=== PATIENT | female | born 1950 | race Caucasian/White ===

== ENCOUNTER 2017-03-30 12:08 | Inpatient (IN) | payer MEDICARE, MEDICAID ==
[2017-03-30 12:42] LABS: % BASOPHILS 0.8 % (0.0-2.0); % EOSINOPHILS 2.4 % (0.0-5.0); % LYMPHOCYTES 27.1 % (20.0-50.0); % MONOCYTES 5.6 % (2.0-10.0); % NEUTROPHILS 64.1 % (40.0-80.0); HEMOGLOBIN 12.9 gm/dL (11.7-16.1); MEAN CELL VOLUME 81.2 fl (81-100); MEAN CORPUSCULAR HEMOGLOBIN 27.5 pg (27.0-31.0); MEAN CORPUSCULAR HGB CONC 33.8 pg (28.0-36.0); MEAN PLATELET VOLUME 8.1 fl; PLATELET COUNT 222 Th/cmm (150-400); RED BLOOD COUNT 4.68 Mil/cmm (3.80-5.20); RED CELL DISTRIBUTION WIDTH 14.5 % (11.5-20.0)
[2017-03-30 12:58] LABS: INR 0.9 (0.5-1.4); PROTHROMBIN TIME (TEST) 9.3 SECONDS (9.5-11.5)
[2017-03-30 13:00] LABS: ALB/GLOB RATIO 1.5 (1.0-1.8); ANION GAP 7.4 (7.0-16.0); BILIRUBIN,TOTAL 0.5 mg/dL (0.3-1.0); BUN/CREATININE RATIO 24.2; CALCIUM SERUM 9.6 mg/dL (8.6-10.3); CREATININE - SERUM 1.2 mg/dL (0.6-1.2); POTASSIUM SERUM 3.4 mEq/L (3.5-5.1)
[2017-03-30 13:01] LABS: CHOLESTEROL 197 mg/dL (<200); TRIGLYCERIDES 188 mg/dL (<150)
--- NOTE | 2017-03-30 13:03 | Diagnostic Imaging Report ---
CT scan of the brain without intravenous contrast HISTORY: Shortness of breath Total DLP equals 761 CTDI equals 40.1 Axial sections were obtained from the base of the skull to the vertex. There is prominence/enlargement of the ventricular system size. Associated enlargement of cerebral sulci and subarachnoid cisterns. Findings are consistent with changes of generalized cerebral atrophy. No acute parenchymal abnormalities. No acute cerebral hemorrhage. Hypodensity is seen within the supratentorial white matter regions without mass effect. The findings may be associated with chronic small vessel ischemic disease. No extra-axial masses or abnormal fluid collections. IMPRESSION: 1. No acute abnormalities 2. Cerebral atrophy 3. Supratentorial white matter changes that may reflect chronic small vessel ischemic disease
--- NOTE | 2017-03-30 13:05 | ED Physician Chart ---
Chief Complaint/HPI - Patient Information Date Seen:: 03/30/17 Time Seen:: 13:00 Chief Complaint:: RIGHT LEG PAIN History of Present Illness:: THIS IS A 66 YO FEMALE WHO STATES SHE SUDDENLY BECAME WEAK AND SOB JUST PRIOR TO ARRIVAL IN THIS ER. SHE DENIES ANY CHEST PAIN, ABDOMINAL PAIN AND HEAD PAIN. SHE ADMITS TO A HISTORY OF HYPERTENSION, CHF, ARTHRITIS AND OBESITY. SHE DENIES FEVER, COUGH AND SORE THROAT. Allergies:: Allergies Allergy/AdvReac Type Severity Reaction Status Date / Time No Known Allergies Allergy Verified 03/30/17 12:44 Vitals:: Vital Signs - 8 hr 03/30/17 12:44 Temp 98.3 F HR 51 RR 17 BP 118/64 O2 Sat % 98 Historian:: Patient Review:: Nurse's Note Reviewed Review of Systems - Review of Systems General/Constitutional: No fever, No chills, No weight loss, Weakness, No diaphoresis, No edema, No loss of appetite Skin: No skin lesions, No rash, No bruising Head: No headache, No light-headedness Eyes: No loss of vision, No pain, No diplopia ENT: No earache, No nasal drainage, No sore throat, No tinnitus Neck: No neck pain, No swelling, No thyromegaly, No stiffness, No mass noted Cardio Vascular: No chest pain, No palpitations, No PND, No orthopnea, No edema Pulmonary: SOB, No cough, No sputum, No wheezing GI: No nausea, No vomiting, No diarrhea, No pain, No melena, No hematochezia, No constipation, No hematemesis G/U: No dysuria, No frequency, No hematuria Musculoskeletal: No bone or joint pain, No back pain, No muscle pain Endocrine: No polyuria, No polydipsia Psychiatric: No prior psych history, No depression, No anxiety, No suicidal ideation Hematopoietic: No bruising, No lymphadenopathy Allergic/Immuno: No urticaria, No angioedema Neurological: No syncope, No focal symptoms, No weakness, No paresthesia, No headache, No seizure, No dizziness, No confusion, No vertigo Past Medical History - Past Medical History Obtainable: Yes Past Medical History: HTN, CHF, Dyslipidemia, Arthritis Social History: Non Smoker, No Alcohol, No Drug Use Surgical History: Cholecystectomy, other (KNEE SURGERY) Family Medical History - Family Member Mother History Unknown: Yes Physical Exam - Physical Examination General/Constitutional: Awake, Well-developed, well-nourished, Alert, No distress, GCS 15, Non-toxic appearing, Ambulatory Other Gen/Cons comments:: OBESE Head: Atraumatic Eyes: Lids, conjuctiva normal, PERRL, EOMI Skin: Nl inspection, No rash, No skin lesions, No ecchymosis, Well hydrated, No lymphadenopathy ENMT: External ears, nose nl, Nasal exam nl, Lips, teeth, gums nl Neck: Nontender, Full ROM w/o pain, No JVD, No nuchal rigidity, No bruit, No mass, No stridor Respiratory: Nl effort/Exclusion, Clear to Auscultation, No Wheeze/Rhonchi/Rales Cardio Vascular: RRR, No murmur, gallop, rubs, NL S1 S2 GI: No tenderness/rebounding/guarding, No organomegaly, No hernia, Normal BS's, Nondistended, No mass/bruits, No McBurney tenderness : No CVA tenderness Extremities: No tenderness or effusion, Full ROM, normal strength in all extremities, Normal digits & nails Other Extremities comments:: BILATERAL 2+ PITTING EDEMA Neuro/Psych: Alert/oriented, DTR's symmetric, Normal sensory exam, Normal motor strength, Judgement/insight normal, Mood normal, Normal gait, No focal deficits Misc: normal gait, Normal back, No paraspinal tenderness Labs/Radiology/EKG Results - Lab Results Results: Laboratory Tests 03/30/17 12:35 WBC 6.0 RBC 4.68 Hgb 12.9 Hct 38.0 MCV 81.2 MCH 27.5 MCHC Differential 33.8 RDW 14.5 Plt Count 222 MPV 8.1 Neutrophils % 64.1 Lymphocytes % 27.1 Monocytes % 5.6 Eosinophils % 2.4 Basophils % 0.8 Abnormal Lab Results 03/30/17 03/30/17 03/30/17 12:35 12:35 12:35 WBC 6.0 RBC 4.68 Hgb 12.9 Hct 38.0 MCV 81.2 MCH 27.5 MCHC Differential 33.8 RDW 14.5 Plt Count 222 MPV 8.1 Neutrophils % 64.1 Lymphocytes % 27.1 Monocytes % 5.6 Eosinophils % 2.4 Basophils % 0.8 PT 9.3 L INR 0.90 PTT (Actin FS) 21.1 L Sodium Potassium Chloride Carbon Dioxide Anion Gap BUN Creatinine Est GFR ( Amer) Est GFR (Non-Af Amer) BUN/Creatinine Ratio Glucose Calcium Total Bilirubin AST ALT Alkaline Phosphatase Troponin I Total Protein Albumin Globulin Albumin/Globulin Ratio Triglycerides 188 H Cholesterol 197 LDL Cholesterol Direct 116 HDL Cholesterol 43 03/30/17 03/30/17 12:35 12:35 WBC RBC Hgb Hct MCV MCH MCHC Differential RDW Plt Count MPV Neutrophils % Lymphocytes % Monocytes % Eosinophils % Basophils % PT INR PTT (Actin FS) Sodium 136 Potassium 3.4 L Chloride 102 Carbon Dioxide 30.0 Anion Gap 7.4 BUN 29 H Creatinine 1.2 Est GFR ( Amer) 58.0 Est GFR (Non-Af Amer) 47.9 BUN/Creatinine Ratio 24.2 Glucose 93 Calcium 9.6 Total Bilirubin 0.5 AST 19 ALT 14 Alkaline Phosphatase 63 Troponin I 0.02 Total Protein 7.1 Albumin 4.2 Globulin 2.9 Albumin/Globulin Ratio 1.5 Triglycerides Cholesterol LDL Cholesterol Direct HDL Cholesterol ED Septic Shock - . Is Septic Shock (SBP<90, OR Lactate>4 mmol\L) present?: No - <6hrs of presentation: Vital Signs: Vital Signs - 8 hr 03/30/17 12:44 Temp 98.3 F HR 51 RR 17 BP 118/64 O2 Sat % 98
--- NOTE | 2017-03-30 13:22 | Diagnostic Imaging Report ---
Exam: Chest single view HISTORY: Shortness of breath. Findings: Upright examination of chest reviewed the study demonstrates no acute pulmonic infiltrates or effusions. Mediastinal structures midline the heart is not enlarged costophrenic angles are clear. Bony thorax is intact. IMPRESSION: 1. Normal examination of chest.
[2017-03-30] MEDS ORDERED: Potassium Chloride Elixir 20 mEq /15 mL UDC PO ONE (13:47)
[2017-03-30] MEDS ORDERED: Potassium Chloride 20 mEq ER Tab PO ONE (13:49)
[2017-03-30] MEDS ORDERED: Potassium Chloride Elixir 20 mEq /15 mL UDC ONE (13:53)
[2017-03-30 18:17] VITALS: BP 128/54
--- NOTE | 2017-03-31 06:34 | History and Physical ---
History of Present Illness - HPI Chief Complaint: Feeling weak and shortness of breath and dizzy. HPI: 66 yrs female with CHF,HTN,Obesity and DJD presented to ER for evaluation of above symptoms. Patient was noted to have symptomatic bradycardia ,patient is now admitted for evaluation and possible need for pacemaker. Vital Signs: Last Vital Signs Temp 97.6 F 03/31/17 04:00 Pulse 62 03/31/17 04:00 Resp 18 03/31/17 04:00 BP 110/55 03/31/17 04:00 Pulse Ox 97 03/31/17 04:00 Past Medical History Cardiovascular: Report: CHF, HTN Pulmonary: Report: No Pertinent Hx IT QUALITY ASSURANCE ANALYST: Report: No Pertinent Hx GI: Report: GERD, Gastritis Psych: Report: No Pertinent Hx Musculoskeletal: Report: Other (DJD) Rheumatologic: Report: No pertinent Hx Infectious Disease: Report: No Pertinent Hx Renal/: Report: No Pertinent Hx Endocrine: Report: No Pertinent Hx Dermatology: Report: No Pertinent Hx - Past Surgical History Past Surgical History: Cholecystectomy, Total Knee Replacement Family Medical History - Family Member Mother History Unknown: Yes Ethnicity: Hx Family Cancer: No Hx Family Coronary Artery Disease: No Hx Family Congestive Heart Failure: No Hx Family Hypertension: Yes Hx Family Diabetes: Yes Social History Smoke: No Alcohol: None Drugs: None Lives: With Family Domestic Violence: Negative - Medications Home Medications: Home Medication Medication Instructions Recorded Type Aspirin [Aspirin Chewable] 81 mg PO DAILY 03/30/17 History Benazepril [Lotensin] 20 mg PO DAILY 03/30/17 History Bisacodyl [Topcare Laxative] 5 mg PO HS 03/30/17 History Ibuprofen 800 mg PO Q8H 03/30/17 History Loratadine [Claritin] 10 mg PO DAILY 03/30/17 History Metolazone 5 mg PO DAILY 03/30/17 History Pantoprazole [Protonix] 40 mg PO DAILY 03/30/17 History Potassium Chloride 16 meq PO DAILY 03/30/17 History Temazepam [Restoril] 30 mg PO HS 03/30/17 History - Allergies Allergies/Adverse Reactions: Allergies Allergy/AdvReac Type Severity Reaction Status Date / Time No Known Allergies Allergy Verified 03/30/17 12:44 Review of Systems - Review of Systems Constitutional: Report: No Significant Eyes: Report: No Significant ENT: Report: No Significant Respiratory: Report: SOB with Excertion Cardiovascular: Report: Chest Pain, Light Headedness Gastrointestinal: Report: Nausea Genitourinary: Report: No Significant Musculoskeletal: Report: No Significant Skin: Report: No Significant Neurological: Report: No Significant Physical Exam - Physical Exam HEENT: Report: Ears Nose Throat within normal limits Neck: Report: Within normal limits Cardiovascular Systems: Report: Systolic Murmur, Bradycardia Respiratory: Report: Breath Sounds are within normal limits Abdomen: Report: Non-tender to palpation Back: Report: Inspection of back is within normal limits. Extremities: Report: Non-tender to palpation., Patient had full range of motion , Pedal edema was noted on inspection Skin: Report: Color of skin is within normal limits Neuro/Psych: Report: Mood affect is within normal limits - Lab Results All Lab Results last 24 hours: Laboratory Last Values WBC 6.0 Th/cmm (4.8-10.8) 03/30/17 12:35 RBC 4.68 Mil/cmm (3.80-5.20) 03/30/17 12:35 Hgb 12.9 gm/dL (11.7-16.1) 03/30/17 12:35 Hct 38.0 % (35.0-45.0) 03/30/17 12:35 MCV 81.2 fl (81-100) 03/30/17 12:35 MCH 27.5 pg (27.0-31.0) 03/30/17 12:35 MCHC Differential 33.8 pg (28.0-36.0) 03/30/17 12:35 RDW 14.5 % (11.5-20.0) 03/30/17 12:35 Plt Count 222 Th/cmm (150-400) 03/30/17 12:35 MPV 8.1 fl 03/30/17 12:35 Neutrophils % 64.1 % (40.0-80.0) 03/30/17 12:35 Lymphocytes % 27.1 % (20.0-50.0) 03/30/17 12:35 Monocytes % 5.6 % (2.0-10.0) 03/30/17 12:35 Eosinophils % 2.4 % (0.0-5.0) 03/30/17 12:35 Basophils % 0.8 % (0.0-2.0) 03/30/17 12:35 PT 9.3 SECONDS (9.5-11.5) L 03/30/17 12:35 INR 0.90 (0.5-1.4) 03/30/17 12:35 PTT (Actin FS) 21.1 SECONDS (26.0-38.0) L 03/30/17 12:35 Sodium 136 mEq/L (136-145) 03/30/17 12:35 Potassium 3.4 mEq/L (3.5-5.1) L 03/30/17 12:35 Chloride 102 mEq/L (98-107) 03/30/17 12:35 Carbon Dioxide 30.0 mEq/L (21.0-31.0) 03/30/17 12:35 Anion Gap 7.4 (7.0-16.0) 03/30/17 12:35 BUN 29 mg/dL (7-25) H 03/30/17 12:35 Creatinine 1.2 mg/dL (0.6-1.2) 03/30/17 12:35 Est GFR ( Amer) 58.0 ml/min (>90) 03/30/17 12:35 Est GFR (Non-Af Amer) 47.9 ml/min 03/30/17 12:35 BUN/Creatinine Ratio 24.2 03/30/17 12:35 Glucose 93 mg/dL (70-105) 03/30/17 12:35 Calcium 9.6 mg/dL (8.6-10.3) 03/30/17 12:35 Total Bilirubin 0.5 mg/dL (0.3-1.0) 03/30/17 12:35 AST 19 U/L (13-39) 03/30/17 12:35 ALT 14 U/L (7-52) 03/30/17 12:35 Alkaline Phosphatase 63 U/L (34-104) 03/30/17 12:35 Troponin I 0.02 ng/mL (0.01-0.05) 03/30/17 20:49 Total Protein 7.1 gm/dL (6.0-8.3) 03/30/17 12:35 Albumin 4.2 gm/dL (3.7-5.3) 03/30/17 12:35 Globulin 2.9 gm/dL 03/30/17 12:35 Albumin/Globulin Ratio 1.5 (1.0-1.8) 03/30/17 12:35 Triglycerides 188 mg/dL (<150) H 03/30/17 12:35 Cholesterol 197 mg/dL (<200) 03/30/17 12:35 LDL Cholesterol Direct 116 mg/dL (75-193) 03/30/17 12:35 HDL Cholesterol 43 mg/dL (23-92) 03/30/17 12:35 RPR NONREACTIVE (NONREACTIVE) 03/30/17 12:35 Laboratory Results - last 24 hr 03/30/17 20:49 Troponin I 0.02 - Assessment Assessment: Current Active Problems Problem Status Onset LEFT ARM/LEG PAIN WITH WEAKNESS Acute Acute weakness and Dyspnea. Symptomatic bradycardia Bilateral leg edema Hypertension GERD DJD Obesity CHF by history - Plan Plan: Stat Bilateral LE doppler. D dimer Cardio consult Cardiac enzymes Cardiac monitoring General nursing care] Med reconcilation Follow lab Follow further investigation and give recommendations care plan reviewed with Staff.
[2017-03-31 06:47] LABS: % BASOPHILS 1.1 % (0.0-2.0); % EOSINOPHILS 3.4 % (0.0-5.0); % LYMPHOCYTES 29.1 % (20.0-50.0); % MONOCYTES 5.6 % (2.0-10.0); % NEUTROPHILS 60.8 % (40.0-80.0); HEMOGLOBIN 11.1 gm/dL (11.7-16.1); MEAN CELL VOLUME 82.8 fl (81-100); MEAN CORPUSCULAR HEMOGLOBIN 27.3 pg (27.0-31.0); MEAN PLATELET VOLUME 8.2 fl; NEUTROPHILE ABSOLUTE 3.7 Th/cmm (1.8-8.0); PLATELET COUNT 199 Th/cmm (150-400); RED BLOOD COUNT 4.07 Mil/cmm (3.80-5.20); RED CELL DISTRIBUTION WIDTH 14.5 % (11.5-20.0)
[2017-03-31 06:50] LABS: HEMATOCRIT 33.7 % (35.0-45.0)
[2017-03-31 07:12] LABS: ALB/GLOB RATIO 1.6 (1.0-1.8); ALKALINE PHOSPHATASE 52 U/L (34-104); ANION GAP 5.9 (7.0-16.0); BILIRUBIN,TOTAL 0.5 mg/dL (0.3-1.0); BUN - UREA NITROGEN 25 mg/dL (7-25); BUN/CREATININE RATIO 22.7; CALCIUM SERUM 9.1 mg/dL (8.6-10.3); CARBON DIOXIDE 30.3 mEq/L (21.0-31.0); CHLORIDE 103 mEq/L (98-107); CHOLESTEROL 168 mg/dL (<200); CREATININE - SERUM 1.1 mg/dL (0.6-1.2); GLUCOSE 109 mg/dL (70-105); MAGNESIUM 1.5 mg/dL (1.9-2.7); POTASSIUM SERUM 3.2 mEq/L (3.5-5.1); SGOT 17 U/L (13-39); SGPT/ALT 13 U/L (7-52); SODIUM SERUM 136 mEq/L (136-145); TRIGLYCERIDES 142 mg/dL (<150)
[2017-03-31] MEDS: Aspirin 81mg Chewable Tab PO SCH (08:51)
[2017-03-31] MEDS: Pantoprazole 40 mg EC Tab PO SCH (08:52)
[2017-03-31] MEDS: Potassium Chloride Elixir 20 mEq /15 mL UDC PO SCH (08:52)
[2017-03-31] MEDS ORDERED: VTE Chemical Prophylaxis Screen/Admission MC PRN (11:44)
[2017-03-31] MEDS: Acetaminophen 500 MG TAB PO PRN ×2 (12:09→18:24)
--- NOTE | 2017-03-31 13:19 | Diagnostic Imaging Report ---
Right lower extremity Doppler venous ultrasound exam HISTORY: Pain/swelling Sonographic sector images were obtained through the deep venous systems of the right leg. Associated Doppler data was obtained. The exam demonstrates patency of the common femoral, superficial femoral, popliteal, and posterior tibial veins. Specifically, no thrombus is seen. There are normal compressibility and augmentation responses. IMPRESSION: Negative exam for deep vein thrombophlebitis.
[2017-04-01 06:17] LABS: ANION GAP 4.8 (7.0-16.0); BUN - UREA NITROGEN 23 mg/dL (7-25); BUN/CREATININE RATIO 20.9; CALCIUM SERUM 9.4 mg/dL (8.6-10.3); CARBON DIOXIDE 32.5 mEq/L (21.0-31.0); CHLORIDE 103 mEq/L (98-107); CREATININE - SERUM 1.1 mg/dL (0.6-1.2); GLUCOSE 100 mg/dL (70-105); POTASSIUM SERUM 3.3 mEq/L (3.5-5.1); SODIUM SERUM 137 mEq/L (136-145)
[2017-04-01] MEDS: Pantoprazole 40 mg EC Tab PO SCH (08:56)
[2017-04-01] MEDS: Acetaminophen 500 MG TAB PO PRN (08:57)
[2017-04-01] MEDS: Potassium Chloride Elixir 20 mEq /15 mL UDC PO SCH (08:58)
[2017-04-01] MEDS: Aspirin 81mg Chewable Tab PO SCH (09:01)
--- NOTE | 2017-04-01 12:11 | Discharge Summary ---
General Discharge Summary - Discharge Summary Date of Admission: 03/30/17 Admitting Diagnosis: weakness and dizziness Patient Problems: All Active Problems LEFT ARM/LEG PAIN WITH WEAKNESS (Acute) Discharge Date: 04/01/17 Discharge Diagnosis: sinus bradycardia. Hypertension. Obesity. Diastolic dysfunction. CHF Laboratory Findings: Laboratory Tests 03/30/17 03/31/17 03/31/17 20:49 06:30 06:30 WBC 6.0 RBC 4.07 Hgb 11.1 L Hct 33.7 L D MCV 82.8 MCH 27.3 MCHC Differential 33.0 RDW 14.5 Plt Count 199 MPV 8.2 Neutrophils % 60.8 Lymphocytes % 29.1 Monocytes % 5.6 Eosinophils % 3.4 Basophils % 1.1 D-Dimer Sodium Potassium Chloride Carbon Dioxide Anion Gap BUN Creatinine Est GFR ( Amer) Est GFR (Non-Af Amer) BUN/Creatinine Ratio Glucose Calcium Magnesium Total Bilirubin AST ALT Alkaline Phosphatase Troponin I 0.02 0.01 B-Natriuretic Peptide Total Protein Albumin Globulin Albumin/Globulin Ratio Triglycerides Cholesterol LDL Cholesterol Direct HDL Cholesterol 03/31/17 03/31/17 04/01/17 06:30 14:15 05:20 WBC RBC Hgb Hct MCV MCH MCHC Differential RDW Plt Count MPV Neutrophils % Lymphocytes % Monocytes % Eosinophils % Basophils % D-Dimer 219 Sodium 136 137 Potassium 3.2 L 3.3 L Chloride 103 103 Carbon Dioxide 30.3 32.5 H Anion Gap 5.9 L 4.8 L BUN 25 23 Creatinine 1.1 1.1 Est GFR ( Amer) > 60.0 > 60.0 Est GFR (Non-Af Amer) 53.0 53.0 BUN/Creatinine Ratio 22.7 20.9 Glucose 109 H 100 Calcium 9.1 9.4 Magnesium 1.5 L Total Bilirubin 0.5 AST 17 ALT 13 Alkaline Phosphatase 52 Troponin I 0.01 B-Natriuretic Peptide Total Protein 5.9 L Albumin 3.6 L Globulin 2.3 Albumin/Globulin Ratio 1.6 Triglycerides 142 Cholesterol 168 LDL Cholesterol Direct 104 HDL Cholesterol 34 04/01/17 05:20 WBC RBC Hgb Hct MCV MCH MCHC Differential RDW Plt Count MPV Neutrophils % Lymphocytes % Monocytes % Eosinophils % Basophils % D-Dimer Sodium Potassium Chloride Carbon Dioxide Anion Gap BUN Creatinine Est GFR ( Amer) Est GFR (Non-Af Amer) BUN/Creatinine Ratio Glucose Calcium Magnesium Total Bilirubin AST ALT Alkaline Phosphatase Troponin I B-Natriuretic Peptide 8.7 Total Protein Albumin Globulin Albumin/Globulin Ratio Triglycerides Cholesterol LDL Cholesterol Direct HDL Cholesterol Hospital Course: 66-year-old female presented to the emergency room for evaluation of weakness dizziness. Patient was seen by emergency room Maisha and noted to bradycardia. Patient was admitted to hospital for evaluation of her symptoms. Patient was seen by produce associate as well as myself. Patient's also had lower extremity venous Doppler studies which was negative for deep venous thrombosis. 2-D echocardiogram was performed which did remarkable for LVH and diastolic dysfunction. Patient remained asymptomatic with heart rate of follow-up 50s and 55 strength while she was awake. Patient's thyroid functions were also normal. I did discuss with produce associate about discharge planning is considering patient was asymptomatic and no plan to have any further intervention. Patient is discharged home in stable conditions today with continuation of same medication as patient was receiving at home. Patient was advised to see patient's primary care doctor and produce associate in 1-2 weeks. If recurrent symptoms patient is advised to go to the emergency room. Treatment: Cardiac monitoring, general nursing care, witnessed Doppler studies of the lower extremity, 2-D echocardiogram Condition at Discharge: Stable Disposition: PT DISCHARGED HOME Home Medications: Home Medication Medication Instructions Recorded Type Aspirin [Aspirin Chewable] 81 mg PO DAILY 03/30/17 History Benazepril [Lotensin] 20 mg PO DAILY 03/30/17 History Bisacodyl [Topcare Laxative] 5 mg PO HS 03/30/17 History Ibuprofen 800 mg PO Q8H 03/30/17 History Loratadine [Claritin] 10 mg PO DAILY 03/30/17 History Metolazone 5 mg PO DAILY 03/30/17 History Pantoprazole [Protonix] 40 mg PO DAILY 03/30/17 History Potassium Chloride 16 meq PO DAILY 03/30/17 History Temazepam [Restoril] 30 mg PO HS 03/30/17 History Inpatient Medications: Current Medications Acetaminophen (Tylenol Extra Strength) 500 mg PO Q6H PRN PRN Reason: Pain (Mild) Stop: 05/30/17 11:50 Last Admin: 04/01/17 08:57 Dose: 500 mg Aspirin (Aspirin Chewable) 81 mg PO DAILY DEMETRIO Stop: 05/30/17 08:59 Last Admin: 04/01/17 09:01 Dose: 81 mg Benazepril HCl (Lotensin) 20 mg PO DAILY DEMETRIO Stop: 05/30/17 08:59 Last Admin: 04/01/17 08:56 Dose: 20 mg Bisacodyl (Dulcolax 5 Mg Ec Tab) 5 mg PO HS DEMETRIO Stop: 05/29/17 20:59 Last Admin: 03/31/17 21:38 Dose: Not Given Loratadine (Claritin) 10 mg PO DAILY DEMETRIO Stop: 05/30/17 08:59 Last Admin: 04/01/17 08:57 Dose: 10 mg Metolazone (Zaroxolyn) 5 mg PO DAILY DEMETRIO Stop: 05/30/17 08:59 Last Admin: 04/01/17 08:56 Dose: 5 mg Miscellaneous (Vte Chemical Prophylaxis Screen/ Admission) 1 ea MC PRN PRN PRN Reason: PROTOCOL Stop: 05/30/17 11:43 Pantoprazole Sodium (Protonix) 40 mg PO DAILY DEMETRIO Stop: 05/30/17 08:59 Last Admin: 04/01/17 08:56 Dose: 40 mg Potassium Chloride (Potassium Chloride Elixir) 16 meq PO DAILY DEMETRIO Stop: 05/30/17 08:59 Last Admin: 04/01/17 08:58 Dose: 16 meq Potassium Chloride (Klor-Con) 20 meq PO X1 ONE Stop: 04/01/17 12:07 Temazepam (Restoril) 30 mg PO HS DEMETRIO Stop: 05/29/17 20:59 Last Admin: 03/31/17 21:37 Dose: 30 mg Consults and Follow-Up: Justin Monroy [Active] - 1-3 Days Instructions: Hypokalemia
[2017-04-01] MEDS ORDERED: Potassium Chloride 20 mEq ER Tab PO ONE (13:00)
--- NOTE | 2017-04-01 14:13 | Consultation ---
Consult Note - Consult Note Service Date: 03/31/17 Referring Physician: Justin Monroy Consult Note: PHYSICIAN Consultation Note: Date of Admission: 03/30/17 Purpose of Consultation: Bradycardia Chief Complaint: Patient complaining of shortness of breath and weakness tiredness no chest pain History of Present Illness: Patient ANDREW AMEZQUITA was admitted to [facility] Telemetry with SYMPTOMATIC BRADYCARDIA. Past Medical History: Diagnoses OBESITY, UNSPECIFIED (03/30/17) HYPERLIPIDEMIA, UNSPECIFIED (03/30/17) HYPOKALEMIA (03/30/17) ESSENTIAL (PRIMARY) HYPERTENSION (03/30/17) HEART FAILURE, UNSPECIFIED (03/30/17) GASTRO-ESOPHAGEAL REFLUX DISEASE WITHOUT ESOPHAGITIS (03/30/17) UNSPECIFIED OSTEOARTHRITIS, UNSPECIFIED SITE (03/30/17) BRADYCARDIA, UNSPECIFIED (03/30/17) SHORTNESS OF BREATH (03/30/17) BODY MASS INDEX (BMI) 50-59.9 , ADULT (03/30/17) Allergies Allergy/AdvReac Type Severity Reaction Status Date / Time No Known Allergies Allergy Verified 03/30/17 12:44 Vital Signs Temp 97.0 F 04/01/17 04:00 Pulse 55 04/01/17 08:56 Resp 18 04/01/17 08:00 BP 130/83 04/01/17 08:56 Pulse Ox 94 04/01/17 04:00 Intake & Output 03/31/17 04/01/17 04/01/17 18:59 06:59 18:59 Intake Total 350 340 Balance 350 340 Weight (lbs) 133.81 kg 133.265 kg Intake: Oral 350 340 Other: # Voids 4 3 # Bowel Movements 4 0 Laboratory Results - last 24 hr 03/31/17 04/01/17 04/01/17 14:15 05:20 05:20 Sodium 137 Potassium 3.3 L Chloride 103 Carbon Dioxide 32.5 H Anion Gap 4.8 L BUN 23 Creatinine 1.1 Est GFR ( Amer) > 60.0 Est GFR (Non-Af Amer) 53.0 BUN/Creatinine Ratio 20.9 Glucose 100 Calcium 9.4 Troponin I 0.01 B-Natriuretic Peptide 8.7 Home Medication Medication Instructions Recorded Type Aspirin [Aspirin Chewable] 81 mg PO DAILY 03/30/17 History Benazepril [Lotensin] 20 mg PO DAILY 03/30/17 History Bisacodyl [Topcare Laxative] 5 mg PO HS 03/30/17 History Loratadine [Claritin] 10 mg PO DAILY 03/30/17 History Metolazone 5 mg PO DAILY 03/30/17 History Pantoprazole [Protonix] 40 mg PO DAILY 03/30/17 History Potassium Chloride 16 meq PO DAILY 03/30/17 History Temazepam [Restoril] 30 mg PO HS 03/30/17 History Current Medications Generic Name Dose Route Start Last Admin Trade Name Freq PRN Reason Stop Dose Admin Acetaminophen 500 mg 03/31/17 11:51 04/01/17 08:57 Tylenol Extra Strength PO 05/30/17 11:50 500 mg Q6H PRN Administration Pain (Mild) Aspirin 81 mg 03/31/17 09:00 04/01/17 09:01 Aspirin Chewable PO 05/30/17 08:59 81 mg DAILY DEMETRIO Administration Benazepril HCl 20 mg 03/31/17 09:00 04/01/17 08:56 Lotensin PO 05/30/17 08:59 20 mg DAILY DEMETRIO Administration Bisacodyl 5 mg 03/30/17 21:00 03/31/17 21:38 Dulcolax 5 Mg Ec Tab PO 05/29/17 20:59 Not Given HS DEMETRIO Loratadine 10 mg 03/31/17 09:00 04/01/17 08:57 Claritin PO 05/30/17 08:59 10 mg DAILY DEMETRIO Administration Metolazone 5 mg 03/31/17 09:00 04/01/17 08:56 Zaroxolyn PO 05/30/17 08:59 5 mg DAILY DEMETRIO Administration Miscellaneous 1 ea 03/31/17 11:44 Vte Chemical Prophylaxis Screen/ Admission 05/30/17 11:43 PRN PRN PROTOCOL Pantoprazole Sodium 40 mg 03/31/17 09:00 04/01/17 08:56 Protonix PO 05/30/17 08:59 40 mg DAILY DEMETRIO Administration Potassium Chloride 16 meq 03/31/17 09:00 04/01/17 08:58 Potassium Chloride Elixir PO 05/30/17 08:59 16 meq DAILY DEMETRIO Administration Temazepam 30 mg 03/30/17 21:00 03/31/17 21:37 Restoril PO 05/29/17 20:59 30 mg HS DEMETRIO Administration Review of Systems: A 12 point ROS was reviewed with the pertinent positive and negatives noted in the HPI. Shortness of breath minimal swelling in the legs Social History Smoking Status Unknown if ever smoked Drug Use No Alcohol Use No Physical Exam: General: Alert and Oriented x3, minimal shortness of breath HEENT: EOMI Bilaterally, PERRLA Bilaterally, Head is normocephalic, atraumatic on inspection. Cardio: Sinus bradycardia S1-S2 no S3 soft S4. Systolic murmur Respiratory: Bilateral occasional wheeze Abdominal: Soft, Nondistended, Nontender to palpation x 4 quadrants Genital/Urinary: No urinary incontinence Extremities: Made minimal pedal edema Neurological: Cranial Nerves II-XII intact bilaterally, Gait Steady, No Focal Deficits noted. Assessment/Plan: Sinus bradycardia Hypertension Morbid obesity Congestive heart failure diastolic dysfunction and chronic Osteoporosis Patient at the present time he'll be on a mild monitor bed we will get TSH level echocardiogram Signed, Joshua Chaudhry. [id number]
--- NOTE | 2017-04-01 16:18 | Cardiology ---
Cardiology Report - Cardiology Cardiology: Date of Service: 03/31/[address] chun wilcox M-MODE ECHOCARDIOLGRAM: Mitral valve normal left ventricle normal ejection fraction 60% left atrium enlargement 4.5 cm aortic root "normal aortic leaflets normal CONCLUSION: Left atrium enlarged ejection fraction 60% 2D ECHO: Long axis mitral valve normal left ventricle normal ejection fraction 60% left atrium enlarged at 5 cm aortic root normal aortic leaflets normal Short axis mitral valve aortic valve normal Apical 4 chamber mitral valve normal left ventricle normal left atrium is enlarged right ventricular cavity normal right atrium normal CONCLUSION: Left atrium enlarged ejection fraction 60% DOPPLER: Trace mitral regurgitation and trace tricuspid regurgitation and right ventricular systolic pressure 31 mmHg CONCLUSION: Trace mitral regurgitation trace tricuspid regurgitation left atrium enlarged ejection fraction 60%
== END 2017-04-01 18:15 | disposition home or self-care (01) | DRG 309 ==
LOC: ER 12:08 → TELE 16:05
PROVIDERS: ADMIT Internal Medicine; ATTEND Internal Medicine
DX: R00.1 Bradycardia, unspecified (principal); Z68.43 Body mass index [BMI] 50.0-59.9, adult; I11.0 Hypertensive heart disease with heart failure; I50.32 Chronic diastolic (congestive) heart failure; K21.9 Gastro-esophageal reflux disease without esophagitis; M19.90 Unspecified osteoarthritis, unspecified site; E87.6 Hypokalemia; E78.5 Hyperlipidemia, unspecified; M81.0 Age-related osteoporosis without current pathological fracture; Z90.49 Acquired absence of other specified parts of digestive tract; Z83.3 Family history of diabetes mellitus; Z82.49 Family history of ischemic heart disease and other diseases of the circulatory system; Z79.82 Long term (current) use of aspirin; E66.01 Morbid (severe) obesity due to excess calories
CPT/HCPCS: 36415-UA; 70450-TC; 71010-TC; 80048-TC; 80053-TC; 80061-TC; 83735-TC; 83880-TC; 84484-TC; 85025-TC; 85379-TC; 85610-TC; 85730-TC; 86592-TC; 93005; 93971-TC-RT; Z7610

== ENCOUNTER 2019-03-12 15:39 | Emergency (ER) | payer MEDICARE, MEDICAID ==
--- NOTE | 2019-03-12 16:43 | ED Physician Chart ---
ED Chief Complaint/HPI - Patient Information Date Seen:: 03/12/19 Time Seen:: 16:12 Chief Complaint:: leg wound check History of Present Illness:: this is a 68 yo female severe chf patient with bilateral 4 plus edema and severe cellulitis of both lower extremities. she is concerned about the leaking from both legs that smells. she is chronically ill in a wheelchair. Allergies:: Allergies Allergy/AdvReac Type Severity Reaction Status Date / Time No Known Allergies Allergy Verified 03/30/17 12:44 Vitals:: Vital Signs - 8 hr 03/12/19 16:00 Temp 98.1 F HR 65 RR 16 BP 103/55 O2 Sat % 99 Historian:: Patient Review:: Nurse's Note Reviewed, Old Chart Reviewed ED Review of Systems - Review of Systems General/Constitutional: No fever, No chills, No weight loss, No weakness, No diaphoresis, Edema, No loss of appetite Skin: Skin lesions (on the legs), No rash, No bruising Head: No headache, No light-headedness Eyes: No loss of vision, No pain, No diplopia ENT: No earache, No nasal drainage, No sore throat, No tinnitus Neck: No neck pain, No swelling, No thyromegaly, No stiffness, No mass noted Cardio Vascular: No chest pain, No palpitations, No PND, No orthopnea, No edema Pulmonary: No SOB, No cough, No sputum, No wheezing GI: No nausea, No vomiting, No diarrhea, No pain, No melena, No hematochezia, No constipation, No hematemesis G/U: No dysuria, No frequency, No hematuria Musculoskeletal: No bone or joint pain, No back pain, No muscle pain Endocrine: No polyuria, No polydipsia Psychiatric: No prior psych history, No depression, No anxiety, No suicidal ideation Hematopoietic: No bruising, No lymphadenopathy Allergic/Immuno: No urticaria, No angioedema Neurological: No syncope, No focal symptoms, No weakness, No paresthesia, No headache, No seizure, No dizziness, No confusion, No vertigo ED Past Medical History - Past Medical History Obtainable: Yes Past Medical History: HTN, CHF, PUD/GERD, Arthritis Family History: None Social History: Non Smoker, No Alcohol, No Drug Use, Homeless Surgical History: Cholecystectomy, other (total knee replacement) Psychiatricy History: None Medication: Reviewed Family Medical History - Family Member Mother History Unknown: Yes Ethnicity: Hx Family Cancer: No Hx Family Coronary Artery Disease: No Hx Family Congestive Heart Failure: No Hx Family Hypertension: Yes Hx Family Diabetes: Yes ED Physical Exam - Physical Examination General/Constitutional: Awake, Well-developed, well-nourished, Alert, No distress, GCS 15, Non-toxic appearing, Ambulatory Other Gen/Cons comments:: obesity Head: Atraumatic Eyes: Lids, conjuctiva normal, PERRL, EOMI Skin: Nl inspection, No rash, No skin lesions, No ecchymosis, Well hydrated, No lymphadenopathy ENMT: External ears, nose nl, Nasal exam nl, Lips, teeth, gums nl Neck: Nontender, Full ROM w/o pain, No JVD, No nuchal rigidity, No bruit, No mass, No stridor Respiratory: Nl effort/Exclusion, Clear to Auscultation, No Wheeze/Rhonchi/Rales Cardio Vascular: RRR, No murmur, gallop, rubs, NL S1 S2 GI: No tenderness/rebounding/guarding, No organomegaly, No hernia, Normal BS's, Nondistended, No mass/bruits, No McBurney tenderness : No CVA tenderness Extremities: No tenderness or effusion, Full ROM, normal strength in all extremities, No edema, Normal digits & nails Neuro/Psych: Alert/oriented, DTR's symmetric, Normal sensory exam, Normal motor strength, Judgement/insight normal, Mood normal, Normal gait, No focal deficits Misc: Normal back, No paraspinal tenderness ED Labs/Radiology/EKG Results - Lab Results Results: Abnormal Lab Results 03/12/19 03/12/19 03/12/19 17:00 17:00 17:00 WBC 5.6 RBC 4.17 Hgb 9.8 L Hct 30.6 L MCV 73.4 L MCH 23.6 L MCHC Differential 32.1 RDW 17.4 Plt Count 237 MPV 7.7 Neutrophils % 60.8 Lymphocytes % 27.7 Monocytes % 8.0 Eosinophils % 2.9 Basophils % 0.6 PT 10.2 INR 0.98 PTT (Actin FS) 26.2 D-Dimer Sodium Potassium Chloride Carbon Dioxide Anion Gap BUN Creatinine Est GFR ( Amer) Est GFR (Non-Af Amer) BUN/Creatinine Ratio Glucose Calcium Total Bilirubin AST ALT Alkaline Phosphatase Troponin I B-Natriuretic Peptide Total Protein Albumin Globulin Albumin/Globulin Ratio Triglycerides 119 Cholesterol 134 LDL Cholesterol Direct 71 L HDL Cholesterol 44 TSH Urine Source Urine Color Urine Clarity Urine pH Ur Specific [place] Urine Protein Urine Glucose (UA) Urine Ketones Urine Blood Urine Nitrate Urine Bilirubin Urine Urobilinogen Ur Leukocyte Esterase Urine RBC Urine WBC Ur Epithelial Cells Urine Bacteria 03/12/19 03/12/19 03/12/19 17:00 17:00 17:00 WBC RBC Hgb Hct MCV MCH MCHC Differential RDW Plt Count MPV Neutrophils % Lymphocytes % Monocytes % Eosinophils % Basophils % PT INR PTT (Actin FS) D-Dimer Sodium 140 Potassium 3.7 Chloride 102 Carbon Dioxide 29.3 Anion Gap 12.4 BUN 19 Creatinine 1.1 Est GFR ( Amer) > 60.0 Est GFR (Non-Af Amer) 52.7 BUN/Creatinine Ratio 17.3 Glucose 115 H Calcium 9.3 Total Bilirubin 0.5 AST 21 ALT 17 Alkaline Phosphatase 59 Troponin I 0.01 B-Natriuretic Peptide Total Protein 6.9 Albumin 4.0 Globulin 2.9 Albumin/Globulin Ratio 1.4 Triglycerides Cholesterol LDL Cholesterol Direct HDL Cholesterol TSH 0.99 Urine Source Urine Color Urine Clarity Urine pH Ur Specific [place] Urine Protein Urine Glucose (UA) Urine Ketones Urine Blood Urine Nitrate Urine Bilirubin Urine Urobilinogen Ur Leukocyte Esterase Urine RBC Urine WBC Ur Epithelial Cells Urine Bacteria 03/12/19 03/12/19 03/12/19 17:00 17:00 17:00 WBC RBC Hgb Hct MCV MCH MCHC Differential RDW Plt Count MPV Neutrophils % Lymphocytes % Monocytes % Eosinophils % Basophils % PT INR PTT (Actin FS) D-Dimer 695 H Sodium Potassium Chloride Carbon Dioxide Anion Gap BUN Creatinine Est GFR ( Amer) Est GFR (Non-Af Amer) BUN/Creatinine Ratio Glucose Calcium Total Bilirubin AST ALT Alkaline Phosphatase Troponin I B-Natriuretic Peptide 7.9 Total Protein Albumin Globulin Albumin/Globulin Ratio Triglycerides Cholesterol LDL Cholesterol Direct HDL Cholesterol TSH Urine Source RANDOM Urine Color YELLOW Urine Clarity CLEAR Urine pH 6.0 Ur Specific [place] 1.020 Urine Protein NEGATIVE Urine Glucose (UA) NEGATIVE Urine Ketones NEGATIVE Urine Blood NEGATIVE Urine Nitrate NEGATIVE Urine Bilirubin NEGATIVE Urine Urobilinogen 0.2 Ur Leukocyte Esterase SMALL H Urine RBC 0-2 Urine WBC 6-10 H Ur Epithelial Cells MODERATE Urine Bacteria 2+ H - Radiology Results Results: chest x-ray = cm - EKG Interpretations EKG Time:: 17:24 Rate & Rhythm: rate = 77, sinus Reinbeck: left axis ED Assessment - Assessment General Assessment: urinary track infection severe edema of both lower extremities obesity hypertension anemia ED Septic Shock - . Is Septic Shock (SBP<90, OR Lactate>4 mmol\L) present?: No - <6hrs of presentation: Vital Signs: Vital Signs - 8 hr 03/12/19 16:00 Temp 98.1 F HR 65 RR 16 BP 103/55 O2 Sat % 99 ED Reassessment (Disposition) - Reassessment Reassessment Condition:: Improved - Diagnosis Diagnosis:: urinary tract infection obesity severe edema of both lower extremities anemia hypertension gerd - Aftercare/Follow up Instructions Aftercare/Follow-Up Instructions:: Counseled pt regarding lab results/diagnosis & need follow up, Refer to Discharge Instructions, Counseled pt & family regarding lab results/diagnosis & need follow up Notes:: the patient was told to follow up with her pmd and quality auditor on THURSDAY and to decrease her food intake. Medication Prescribed:: [id number] - Patient Disposition Discharge/Transfer:: Home Condition at Disposition:: Improved
[2019-03-12 17:12] LABS: % EOSINOPHILS 2.9 % (0.0-5.0); EOSINOPHILE ABSOLUTE 0.2 Th/cmm (0.1-0.4); HEMOGLOBIN 9.8 gm/dL (12-16); LYMPHOCYTE ABSOLUTE 1.6 Th/cmm (1.5-3.0); MONOCYTE ABSOLUTE 0.4 Th/cmm (0.3-1.0)
[2019-03-12 17:15] LABS: % BASOPHILS 0.6 % (0.0-2.0); % LYMPHOCYTES 27.7 % (20.0-50.0); % NEUTROPHILS 60.8 % (40.0-80.0); HEMATOCRIT 30.6 % (41.0-60); MEAN CELL VOLUME 73.4 fl (81-100); MEAN CORPUSCULAR HEMOGLOBIN 23.6 pg (27.0-31.0); MEAN CORPUSCULAR HGB CONC 32.1 pg (28.0-36.0); NEUTROPHILE ABSOLUTE 3.4 Th/cmm (1.8-8.0); PLATELET COUNT 237 Th/cmm (150-400); RED BLOOD COUNT 4.17 Mil/cmm (3.80-5.20); RED CELL DISTRIBUTION WIDTH 17.4 % (11.5-20.0); WHITE BLOOD COUNT 5.6 Th/cmm (4.8-10.8)
[2019-03-12 17:29] LABS: INR 0.98 (0.5-1.4)
[2019-03-12 17:30] LABS: URINE SOURCE RANDOM
[2019-03-12 17:33] LABS: URINE BILIRUBIN NEGATIVE (NEGATIVE); URINE BLOOD NEGATIVE (NEGATIVE); URINE GLUCOSE (UA) NEGATIVE (NEGATIVE); URINE KETONE NEGATIVE (NEGATIVE); URINE LEUKOCYTE ESTERASE SMALL (NEGATIVE); URINE NITRATE NEGATIVE (NEGATIVE); URINE PROTEIN NEGATIVE (NEGATIVE); URINE UROBILINOGEN 0.2 E.U./dL (0.2 - 1.0)
[2019-03-12 17:35] LABS: ALB/GLOB RATIO 1.4 (1.0-1.8); ALKALINE PHOSPHATASE 59 U/L (34-104); ANION GAP 12.4 (7.0-16.0); BILIRUBIN,TOTAL 0.5 mg/dL (0.3-1.0); BUN - UREA NITROGEN 19 mg/dL (7-25); CALCIUM SERUM 9.3 mg/dL (8.6-10.3); CARBON DIOXIDE 29.3 mEq/L (21.0-31.0); CHLORIDE 102 mEq/L (98-107); CHOLESTEROL 134 mg/dL (<200); CREATININE - SERUM 1.1 mg/dL (0.6-1.2); GFR AFRICAN-AMERICAN > 60.0 ml/min (>90); GFR NON AFRICAN-AMERICAN 52.7 ml/min; GLUCOSE 115 mg/dL (70-105); HDL -HIGH DENSITY LIPOPROTEIN 44 mg/dL (23-92); POTASSIUM SERUM 3.7 mEq/L (3.5-5.1); SGOT 21 U/L (13-39); SGPT/ALT 17 U/L (7-52); SODIUM SERUM 140 mEq/L (136-145); TOTAL PROTEIN,SERUM 6.9 gm/dL (6.0-8.3); TRIGLYCERIDES 119 mg/dL (<150)
[2019-03-12 17:42] LABS: URINE CLARITY CLEAR (CLEAR); URINE COLOR YELLOW; URINE MICROSCOPIC INDICATED? YES
[2019-03-12 17:47] LABS: URINE BACTERIA 2+ /hpf (NONE SEEN); URINE EPITHELIAL CELLS MODERATE /lpf (FEW); URINE RBC 0-2 /hpf (0-5)
[2019-03-12] MEDS ORDERED: Triple Antibiotic 0.94 gm Pkt TP STA (18:24)
[2019-03-12] MEDS ORDERED: Triple Antibiotic 0.94 gm Pkt TP ONE ×2 (18:26→18:27)
--- NOTE | 2019-03-13 10:32 | Diagnostic Imaging Report ---
Portable chest x-ray Time: History: Congestion Allowing for portable technique the heart size is enlarged. No focal pulmonary parenchymal processes. No hilar or mediastinal abnormalities. Impression: No acute abnormalities.
== END 2019-03-12 19:26 | disposition short-term general hospital (02) ==
LOC: ER 15:39
DX: N39.0 Urinary tract infection, site not specified (principal); I11.0 Hypertensive heart disease with heart failure; I50.9 Heart failure, unspecified; D64.9 Anemia, unspecified; E66.9 Obesity, unspecified; R60.0 Localized edema; K21.9 Gastro-esophageal reflux disease without esophagitis; M19.90 Unspecified osteoarthritis, unspecified site; Z90.49 Acquired absence of other specified parts of digestive tract
CPT/HCPCS: 99284; 96372; 93005 ×2; 71045; 84484; 83880; 36415; 85379; 84443; 86592; 85025; 85610; 85730; 87070; 87086; 81001; 82140; 80053; 80061; J0696